=== PATIENT | male | born 1990 | race Caucasian/White ===

== ENCOUNTER 2019-03-19 11:12 | Day surgery (SDC) | payer BC ==
[~2019-03-19] VITALS: Ht 185.4 cm; Wt 79.4 kg
[~2019-03-19 11:12] MED LIST: BUPIVACAINE MPF 0.5% 30 ML VIAL. ONE; LIDOCAINE 1% 20 ML VIAL. ONE
[2019-03-19] MEDS ORDERED: ONDANSETRON PF 4 MG/2 ML VIAL. ONE (11:35)
[2019-03-19] MEDS ORDERED: PROPOFOL 20 ML IV ONE (11:35)
[2019-03-19] MEDS ORDERED: FAMOTIDINE 20 MG/2 ML VIAL ONE (11:35)
[2019-03-19] MEDS ORDERED: MIDAZOLAM HCL/PF 2 MG/2 ML VIAL. ONE (11:35)
[2019-03-19] MEDS ORDERED: LIDOCAINE 2% PF 5 ML VIAL. ONE (11:35)
[2019-03-19] MEDS ORDERED: DEXAMETHASONE SOD PHOS 4 MG/ML VIAL ONE (11:35)
[2019-03-19] MEDS ORDERED: fentaNYL PF VIAL 100 MCG/2 ML VIAL ONE ×2 (11:35→13:57)
[2019-03-19] MEDS ORDERED: ROCURONIUM 50 MG/5 ML VIAL. ONE (11:35)
--- NOTE | 2019-03-19 11:45 | DISCH ---
DISCHARGE INSTRUCTIONS Condition on Discharge Condition on Discharge: Stable Activity After Discharge Activity Instructions for Disc: Other ROM activity Bathing Instructions: Shower-keep dressing dry Weight Bearing Status after Di: Non weight bearing Diet after Discharge Diet after Discharge: Regular Wound Incision Care Wound/Incision Care: Ice to area for comfort, Keep wound/cast CDI, Keep wound elevated, Do not change dressing Contacting the DRJeovany after DC Call your doctor for: Concerns you may have Follow-Up Follow up with: Brent in 2 wks ANDRÉS ODONNELL II, MD Mar 19, 2019 11:45
[2019-03-19] MEDS ORDERED: LOSA-73 PO (11:46)
[2019-03-19] MEDS ORDERED: HYDR-3164 PO (11:47)
[2019-03-19] MEDS ORDERED: IV RINGERS,LACTATED 1000ML 1,000 ML IV SCH (12:05)
[2019-03-19] MEDS ORDERED: MIDAZOLAM HCL/PF 2 MG/2 ML VIAL. IV PRN (12:15)
[2019-03-19] MEDS ORDERED: LIDOCAINE 1% PF 2 ML VIAL. ID PRN (12:15)
[2019-03-19] MEDS ORDERED: fentaNYL PF VIAL 100 MCG/2 ML VIAL IV PRN (12:15)
[2019-03-19] MEDS ORDERED: GLYCOPYRROLATE 1 MG/5 ML VIAL. ONE (13:17)
[2019-03-19] MEDS ORDERED: NEOSTIGMINE METHYLSULFATE 5 MG/5 ML SYRINGE. ONE (13:17)
[2019-03-19] MEDS ORDERED: SEVOFLURANE 61 TO 120 MINUTES. IH ONE (13:26)
[2019-03-19] MEDS ORDERED: HYDR-3135 PO (13:31)
[2019-03-19] MEDS ORDERED: ONDA8TAB9 PO (13:31)
--- NOTE | 2019-03-19 13:34 | PDOC4 ---
Operative Note Operative Note Date of procedure: 03/19/2019 Surgeon: Ra Odonnell Central Office Equipment Installer: Omaira Bragg, acute care certified nursing assistant Preoperative diagnosis: Right Achilles rupture Postoperative diagnosis: Same Procedure performed: Open right Achilles tendon repair Anesthesia: Gen. 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 I�d seen him in my outpatient clinic in consultation for his injury, please see this note for further details. We had a discussion of the risks, benefits, and alternatives to the above surgery and he wished to proceed. Description of procedure: Patient was greeted in the preoperative holding area by myself for the correct extremity was spared a fight and marked. He was taken to the operative suite and his antibiotics were started as he was brought back. Once in the operating room, he was stretched gently prone to the operating table and secured the bed with all pressure points padded after he had successful induction of a general anesthetic on the recovery room cart. We then applied a nonsterile tourniquet to his right upper thigh and taped in place. We then proceeded to prep and drape right lower extremity in our usual sterile fashion and conducted our standard preoperative timeout. I then palpated for his defect and made a vertical incision centered over this just lateral to midline. Skin was incised with a scalpel, I dissected subcutaneous tissue with electrocautery and cauterized bleeders. Identified the fascia, incised this in line with the skin incision. Identified his rupture site and used a Rongeur to debride this back to healthy edges, I did not take much tissue. I irrigated this out for improved visualization. I freed up the tendon from the surrounding peritenon, there were some early adhesions and I did this to mobilize it. His anatomy demonstrated a much more distal muscle belly and thinner tendinous portion at this level, the level of his rupture site. I then grasped each end of the tendon with an Allis clamp and then used 2 #2 ultra braid�s in a locked running fashion up and down the tendon on each side of the rupture, giving me a total of 8 limbs of suture material. I then tied these to each other securely. After this, used #1 Vicryl in a simple interrupted fashion to oppose some longer strands of tissue that were not well incorporated into the ultra braid repair. After testing the repair integrity with gentle motion, the operative field was irrigated out. Fascia was closed with simple interrupted #1 Vicryl. Inverted interrupted 2-0 Vicryl was used for subcutaneous tissue and 3-0 nylon in a mattress fashion for skin. Local anesthetic was injected into the kalpana-incisio nal soft tissues, ensuring extravascular placement. After this, the leg was cleansed and dried and a sterile dressing was applied followed by a well-padded AO splint. Prior to wound closure, all counts correct �2. No complications. At the conclusion, he was laid supine and transferred gently supine to the recovery room cart and taken to PACU in a stable and extubated condition. Postoperative plan is to discharge him home, nonweightbearing. He will leave the splint in place. Wound care was discussed with him and his significant other and given and written form. I�ll see him back in 2 weeks, sooner should a problem arise RA ODONNELL II, MD Mar 19, 2019 13:34
[2019-03-19] MEDS ORDERED: HYDROcodone/APAP 10/325 1 TAB TABLET PO ONE (13:45)
[2019-03-19] MEDS: fentaNYL PF VIAL 100 MCG/2 ML VIAL IV PRN ×2 (14:00→14:07)
[2019-03-19] MEDS ORDERED: MORPHINE SULFATE 2 MG/ML VIAL. ONE ×2 (14:14→14:37)
[2019-03-19] MEDS: MORPHINE SULFATE 2 MG/ML VIAL. IV PRN ×4 (14:15→14:55)
[2019-03-19] MEDS ORDERED: ATROPINE 0.5 MG/5 ML DISP.SYRINGE. IV PRN (14:30)
[2019-03-19] MEDS ORDERED: NALOXONE 0.4 MG/ML VIAL. IV PRN (14:30)
[2019-03-19 15:26] VITALS: BP 140/76
== END 2019-03-19 15:26 | disposition home or self-care (01) ==
LOC: SURG 11:12
PROVIDERS: ATTEND Orthopaedic Surgery Sports Medicine
DX: S86.011A Strain of right Achilles tendon, initial encounter (principal); I10 Essential (primary) hypertension; Z98.890 Other specified postprocedural states; Z72.89 Other problems related to lifestyle; Y93.67 Activity, basketball; Y93.89 Activity, other specified; Y92.89 Other specified places as the place of occurrence of the external cause; Y99.8 Other external cause status
CPT/HCPCS: 27650; A7015; J0690; J1100; J2001; J2250; J2270; J2405; J2704; J2710; J3010; J3490